=== PATIENT | male | born 1975 | race Caucasian/White ===

== ENCOUNTER → 2016-11-08 | Outpatient (CLI) | payer OTHER | LOC: LAB 09:38 | DX: Z00.00 Encounter for general adult medical examination without abnormal findings (principal); Z12.5 Encounter for screening for malignant neoplasm of prostate ==

== ENCOUNTER → 2018-09-25 | Outpatient (CLI) | payer SELFPAY ==
[2014-10-14 13:32] VITALS: BP 126/72
== END ==
LOC: LAB 13:25 → RAD 13:25
DX: S92.334A Nondisplaced fracture of third metatarsal bone, right foot, initial encounter for closed fracture (principal)

== ENCOUNTER → 2020-03-09 | Outpatient (CLI) | payer OTHER ==
[2014-10-14 13:32] VITALS: BP 126/72
== END ==
LOC: RAD 12:05
DX: S92.354A Nondisplaced fracture of fifth metatarsal bone, right foot, initial encounter for closed fracture (principal)

== ENCOUNTER 2020-10-21 10:56 | Outpatient (RCR) | payer OTHER ==
[2014-10-14 13:32] VITALS: BP 126/72
== END 2020-11-08 16:30 | disposition home or self-care (01) ==
LOC: PT 10:56
DX: M17.12 Unilateral primary osteoarthritis, left knee (principal)

== ENCOUNTER 2021-08-31 13:56 | Outpatient (RCR) | payer SELFPAY | END 2021-10-26 17:00 | disposition home or self-care (01) | LOC: PT 13:56 | DX: M54.40 Lumbago with sciatica, unspecified side (principal); M25.562 Pain in left knee ==

== ENCOUNTER → 2023-01-17 | Outpatient (CLI) | payer OTHER ==
[2023-01-17 09:24] LABS: BASO # 0.01 K/mm3 (0.02-0.10); EOS # 0.11 K/mm3 (0.04-0.40); EOS % 2.2 % (0.0-4.0); HEMOGLOBIN 14.6 g/dL (13.5-18.0); LYMPH# 0.95 K/mm3 (1.50-4.00); MEAN CELL VOLUME 92 fl (78-100); MEAN CORPUSCULAR HEMOGLOBIN 31 pg (27-31); MEAN CORPUSCULAR HGB CONC 34 g/dL (33-37); MEAN PLATELET VOLUME 10.2 fl (7.4-10.4); MONO # 0.55 K/mm3 (0.20-0.80); NEU # 3.33 K/mm3 (1.40-6.50); PLATELET COUNT 170 K/mm3 (130-400)
[2023-01-17 09:36] LABS: ALBUMIN 4.4 g/dL (3.5-5.0); POTASSIUM 4.4 mmol/L (3.5-5.1)
[2023-01-17 09:38] LABS: CALCIUM 9.6 mg/dL (8.3-10.5)
[2023-01-17 09:39] LABS: TOTAL PROTEIN 7.3 g/dL (6.4-8.3)
[2023-01-17 09:41] LABS: TOTAL BILIRUBIN 0.4 mg/dL (0.2-1.2)
[2023-01-17 09:45] LABS: MAGNESIUM 2.14 mg/dL (1.60-2.60)
[2023-01-17 09:57] LABS: PROTHROMBIN TIME 9.9 SECONDS (9.0-12.0)
[2023-01-17 10:08] LABS: URINE APPEARANCE CLEAR; URINE BILIRUBIN NEGATIVE (NEGATIVE); URINE BLOOD NEGATIVE (NEGATIVE); URINE COLOR YELLOW; URINE GLUCOSE NEGATIVE (NEGATIVE); URINE KETONE NEGATIVE (NEGATIVE); URINE LEUKOCYTE ESTERASE NEGATIVE (NEGATIVE); URINE NITRATE NEGATIVE (NEGATIVE); URINE PROTEIN(semi-quant) NEGATIVE (NEGATIVE); URINE UROBILINOGEN NORMAL (NORMAL); URINE WBC 0-1 /hpf (0-3)
== END ==
LOC: LAB 08:59
PROVIDERS: Internal Medicine
DX: Z01.812 Encounter for preprocedural laboratory examination (principal); Z01.810 Encounter for preprocedural cardiovascular examination; M87.859 Other osteonecrosis, unspecified femur

== ENCOUNTER → 2023-07-04 | Outpatient (CLI) | payer OTHER | LOC: RAD 07:39 | DX: M17.12 Unilateral primary osteoarthritis, left knee (principal) ==

== ENCOUNTER 2023-09-16 13:45 | Outpatient (RCR) | payer OTHER | END 2023-09-29 | disposition home or self-care (01) | LOC: PT | DX: M17.12 Unilateral primary osteoarthritis, left knee (principal); Z96.652 Presence of left artificial knee joint ==

== ENCOUNTER 2023-10-01 08:00 | Outpatient (RCR) | payer OTHER | END 2023-10-30 | disposition home or self-care (01) | LOC: PT | DX: M17.12 Unilateral primary osteoarthritis, left knee (principal); Z96.652 Presence of left artificial knee joint ==

== ENCOUNTER → 2023-10-16 | Outpatient (CLI) | payer OTHER | LOC: VAS 09:52 | DX: M79.662 Pain in left lower leg (principal) ==

== ENCOUNTER 2023-10-31 08:31 | Outpatient (RCR) | payer OTHER | END 2023-11-28 | disposition home or self-care (01) | LOC: PT | DX: M17.12 Unilateral primary osteoarthritis, left knee (principal); Z96.652 Presence of left artificial knee joint ==